=== PATIENT | male | born 1965 | race Caucasian/White ===

== ENCOUNTER → 2018-02-20 | Outpatient (CLI) | payer BC ==
--- NOTE | 2018-02-20 12:16 | RAD ---
EXAM: Bilateral shoulders, 3 views. HISTORY: Pain. COMPARISON: None. FINDINGS: 3 views of both shoulders are obtained. There is no fracture, dislocation or subacute fixation. There is suspected degenerative subchondral cyst formation involving the left greater than right superior humeral heads. There is minimal bilateral acromioclavicular osteoarthritis. No significant subacromial spur is seen. IMPRESSION: 1. 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 2. No acute osseous finding. Electronically signed by: Mitzi Vargas MD (02/20/2018 12:12 PM) [place] [id number]
== END | disposition home or self-care (01) ==
LOC: RAD 11:51
PROVIDERS: ATTEND Orthopaedic Surgery
DX: M19.012 Primary osteoarthritis, left shoulder (principal); M19.011 Primary osteoarthritis, right shoulder
CPT/HCPCS: 73030